=== PATIENT | male | born 1995 | race Caucasian/White ===

== ENCOUNTER 2021-10-26 20:38 | Emergency (ER) | payer OTHER, SELFPAY ==
[2021-10-26 20:47] VITALS: BP 129/80; PULSE 91; RESP 17; TEMP 36.8; O2SAT 96; BMI 25.1
[2021-10-26 21:06] VITALS: PULSE 64; RESP 22; O2SAT 96
[2021-10-26 21:22] LABS: Add Manual Diff / Slide Review NO; Basophils Absolute Auto 0 /uL (0-100); Basophils Percent Auto 0.5 % (0-2); Eosinophils Absolute Auto 100 /uL (0-450); Eosinophils Percent Auto 0.9 % (2-4); Hematocrit 41.3 % (41-53); Lymphocytes Absolute Auto 1700 /uL (1100-4500); Lymphocytes Percent Auto 23.7 % (25-40); Mean Corpuscular HGB Conc 33.9 % (30-36); Mean Corpuscular Hemoglobin 28.8 PG (26-34); Mean Corpuscular Volume 84.8 fL (80-100); Monocytes Absolute Auto 400 /uL (0-900); Monocytes Percent Auto 5.3 % (3-14); Neutrophils Absolute Auto 5100 /uL (1500-7000); Neutrophils Percent Auto 69.6 % (50-75); Platelet Count 222 X10^3/uL (150-400); Red Blood Cell Count 4.87 X10^6/uL (4.5-5.9); Red Cell Distribution Width 13.2 % (11.6-14.8); White Blood Cell Count 7.3 X10^3/uL (4.5-11.0)
[2021-10-26 21:27] LABS: Alanine Aminotransferase 33 IU/L (<50); Albumin 4.6 g/dL (3.5-5.0); Albumin Globulin Ratio 1.5 (1.0-2.8); Alkaline Phosphatase 42 U/L (38-126); Aspartate Aminotransferase 32 IU/L (17-59); BUN Creatinine Ratio 19.3 (6-22); Bilirubin Total 0.4 mg/dL (0.2-1.3); Blood Urea Nitrogen 16 mg/dL (9-20); Calcium 8.8 mg/dL (8.4-10.2); Carbon Dioxide 25 mmol/L (22-32); Chloride 106 mmol/L (98-107); Estimated Glomerular Filt Rate > 60 mL/min (>60); Globulin 3.1 g/dL (1.7-4.1); Glucose 95 mg/dL (70-100); HEMOLYSIS < 15 (0-50); Potassium 4.1 mmol/L (3.4-5.1); Sodium 137 mmol/L (137-145); Total Protein 7.7 g/dL (6.3-8.2)
[2021-10-26 21:30] VITALS: PULSE 60; RESP 20; O2SAT 96
--- NOTE | 2021-10-26 21:52 | DI.CT.S_ITS ---
PROCEDURE: CT ABDOMEN PELVIS W CON INDICATIONS: GI Bleed TECHNIQUE: After the administration of oral and IV contrast, axial sections were acquired from the lung bases to the pubic symphysis. Coronal and sagittal reformats were performed. For radiation dose reduction, the following was used: automated exposure control, adjustment of mA and/or kV according to patient size. COMPARISON: None. FINDINGS: Image quality: Excellent. Lung bases: Dependent atelectasis in posterior aspect of bilateral lung bases are seen.. Heart: No significant findings. ABDOMEN: Liver: Borderline hepatomegaly is seen. Well-circumscribed hypodensity involving inferior right hepatic lobe measures 4-5 mm in size is seen and is too small to characterize series 2, image 39. No other hepatic lesion is seen.. Gallbladder: Within normal limits. Biliary ducts: Unremarkable. Pancreas: Unremarkable. Spleen: Unremarkable. Adrenal Glands: Unremarkable. Kidneys and Ureters: No stones or hydronephrosis. No hydroureter. Stomach and Bowel: There is no evidence of bowel obstruction. No gastric wall thickening. Segmental small bowel wall thickening in left upper quadrant abdomen is seen with narrowing of the lumen. There is also suggestion wall thickening involving distal descending colon and sigmoid colon with mild pericolonic fat stranding and narrowing of the lumen. No abscess collection. Peritoneum: No abnormal intraperitoneal fluid. No free air. Ventral Wall: No hernia. Abdominal Nodes: No retroperitoneal or mesenteric adenopathy by size criteria. Vessels: Aorta and inferior vena cava are normal in size. PELVIS: Pelvic Organs: Unremarkable. Bladder: Unremarkable. Pelvic Nodes: No enlarged lymph nodes. Miscellaneous: No inguinal hernias are seen. Bones: No suspicious intraosseous lesion. No acute vertebral body compression fracture. Degenerative endplate changes at T10-11 through L2-3 levels are seen with dorsal disc osteophyte complex formation and mild central canal stenosis. IMPRESSION: 1. Segmental small bowel wall thickening in left upper quadrant abdomen and descending colon and sigmoid colon wall thickening concerning for infectious or inflammatory enterocolitis. No bowel obstruction. No abscess collection. No free fluid or free air. 2. Borderline hepatomegaly, suggestion of tiny cyst involving inferior right hepatic lobe. 3. Degenerative endplate changes at thoracolumbar junction as above. Dictated by: Gene Arrieta M.D. on 10/26/2021 at 23:18 Approved by: Gene Arrieta M.D. on 10/26/2021 at 23:22
[2021-10-26 22:00] VITALS: PULSE 61; RESP 21; O2SAT 97
[2021-10-26 22:30] VITALS: PULSE 60; RESP 18; O2SAT 98
[2021-10-26 22:31] LABS: Erythrocyte Sedimentation Rate 1 MM/HR (0-15)
[2021-10-26 22:40] LABS: C-Reactive Protein Quant < 0.5 mg/dL (<1.0)
[2021-10-26 23:00] VITALS: PULSE 59; RESP 19; O2SAT 96
--- NOTE | 2021-10-27 00:56 | ED.GIBLEED ---
HPI - GI Bleed General Chief complaint: GI Bleed Stated complaint: Lower ABD pain, Blood in stool Time Seen by Provider: 10/26/21 21:47 Source: patient Mode of arrival: Ambulatory History of Present Illness HPI Narrative: 25-year-old gentleman presents with bright red blood per rectum. He notes that he had an episode associated with some stool, blood on the outside of the stool, and then had an episode of just blood that did turn all of the toilet water bloody but was not actually a clot. He describes no history of hemorrhoids has not been constipated. He is having some mild lower abdominal cramping. His mother had a history of Crohn's disease and last year of colon cancer. Kenn had a colonoscopy as a teen and did not have any abnormalities. He has not had rectal bleeding previously he does not describe any weight loss, fevers, chest pain palpitations, dyspnea, orthopnea, Related Data Previous Rx's Medication Instructions Recorded prednisone 20 mg tablet 40 mg PO DAILY #35 tabs 10/27/21 Allergies Allergy/AdvReac Type Severity Reaction Status Date / Time Penicillins Allergy Anaphylaxis Verified 10/26/21 20:52 Review of Systems Review of Systems Narrative: Remainder of complete review of systems is otherwise unremarkable except for that included in the HPI. Patient History Social History Smoking Status: Current every day smoker Smoking Status: Current every day smoker tobacco type: vaping alcohol intake frequency: 0-2 drinks per day Substance Use Type: does not use Exam Initial Vital Signs Initial Vital Signs: Vital Signs Temperature 98.3 F 10/26/21 20:47 Pulse Rate 91 H 10/26/21 20:47 Respiratory Rate 17 10/26/21 20:47 Blood Pressure 129/80 10/26/21 20:47 Pulse Oximetry 96 10/26/21 20:47 Oxygen Delivery Method 10/26/21 20:47 Course Orders Ordered: ED Orders 10/26/21 20:53 EKG-12 Lead Stat 10/26/21 21:03 CRP [C-Reactive Protein Quant] Stat Complete Blood Count AUTO DIFF Stat Comprehensive Metabolic Panel Stat Erythrocyte Sedimentation Rate Stat 10/26/21 21:52 CT abdomen pelvis w con Stat Discontinued Medications Prednisone (Prednisone 20 Mg Tablet) 40 mg PO NOW ONE Stop: 10/27/21 01:28 Vital Signs Vital signs: Vital Signs - 8 hr 10/26/21 20:47 Temperature 98.3 F Pulse Rate 91 H Respiratory Rate 17 Blood Pressure 129/80 Pulse Oximetry 96 Oxygen Delivery Method Room Air MDM - GI Bleed Lab Data Result diagrams: 10/26/21 21:03 10/26/21 21:03 Labs: Lab Results 10/26/21 10/26/21 10/26/21 Range/Units 21:03 21:03 21:03 WBC 7.3 (4.5-11.0) X10^3/uL RBC 4.87 (4.5-5.9) X10^6/uL Hgb 14.0 (13.5-17.5) g/dL Hct 41.3 (41-53) % MCV 84.8 (80-100) fL MCH 28.8 (26-34) PG MCHC 33.9 (30-36) % RDW 13.2 (11.6-14.8) % Plt Count 222 (150-400) X10^3/uL Neut % (Auto) 69.6 (50-75) % Lymph % (Auto) 23.7 L (25-40) % Meriwether % (Auto) 5.3 (3-14) % Eos % (Auto) 0.9 L (2-4) % Baso % (Auto) 0.5 (0-2) % Neut # (Auto) 5100 (8564-4169) /uL Lymph # (Auto) 1700 (7157-9383) /uL Meriwether # (Auto) 400 (0-900) /uL Eos # (Auto) 100 (0-450) /uL Baso # (Auto) 0 (0-100) /uL ESR 1 (0-15) MM/HR Sodium 137 (137-145) mmol/L Potassium 4.1 (3.4-5.1) mmol/L Chloride 106 (98-107) mmol/L Carbon Dioxide 25 (22-32) mmol/L BUN 16 (9-20) mg/dL Creatinine 0.83 (0.66-1.25) mg/dL Estimated GFR > 60 (>60) mL/min BUN/Creatinine Ratio 19.3 (6-22) Glucose 95 (70-100) mg/dL Calcium 8.8 (8.4-10.2) mg/dL Total Bilirubin 0.4 (0.2-1.3) mg/dL AST 32 (17-59) IU/L ALT 33 (<50) IU/L Alkaline Phosphatase 42 (38-126) U/L C-Reactive Protein (<1.0) mg/dL Total Protein 7.7 (6.3-8.2) g/dL Albumin 4.6 (3.5-5.0) g/dL Globulin 3.1 (1.7-4.1) g/dL Albumin/Globulin Ratio 1.5 (1.0-2.8) 10/26/21 Range/Units 21:03 WBC (4.5-11.0) X10^3/uL RBC (4.5-5.9) X10^6/uL Hgb (13.5-17.5) g/dL Hct (41-53) % MCV (80-100) fL MCH (26-34) PG MCHC (30-36) % RDW (11.6-14.8) % Plt Count (150-400) X10^3/uL Neut % (Auto) (50-75) % Lymph % (Auto) (25-40) % Meriwether % (Auto) (3-14) % Eos % (Auto) (2-4) % Baso % (Auto) (0-2) % Neut # (Auto) (3099-5937) /uL Lymph # (Auto) (7019-8497) /uL Meriwether # (Auto) (0-900) /uL Eos # (Auto) (0-450) /uL Baso # (Auto) (0-100) /uL ESR (0-15) MM/HR Sodium (137-145) mmol/L Potassium (3.4-5.1) mmol/L Chloride (98-107) mmol/L Carbon Dioxide (22-32) mmol/L BUN (9-20) mg/dL Creatinine (0.66-1.25) mg/dL Estimated GFR (>60) mL/min BUN/Creatinine Ratio (6-22) Glucose (70-100) mg/dL Calcium (8.4-10.2) mg/dL Total Bilirubin (0.2-1.3) mg/dL AST (17-59) IU/L ALT (<50) IU/L Alkaline Phosphatase (38-126) U/L C-Reactive Protein < 0.5 (<1.0) mg/dL Total Protein (6.3-8.2) g/dL Albumin (3.5-5.0) g/dL Globulin (1.7-4.1) g/dL Albumin/Globulin Ratio (1.0-2.8) Urine Dip Bedside Urine Glucose Negative Bedside Urine Bilirubin - Negative Bedside Urine Ketone - Negative Urine Specific Dougherty 1.015 Bedside Urine Occult Blood - Negative Bedside Urine pH 6.5 Bedside Urine Protein - Negative Bedside Urine Urobilinogen - Negative Bedside Urine Nitrite - Negative Bedside Urine Leukocytes - Negative Esterase Imaging Data CT scan - abdomen/pelvis: Radiologist's Impression: FINDINGS:? Image quality:? Excellent.? ? Lung bases:? Dependent atelectasis in posterior aspect of bilateral lung bases are seen.. ?? Heart:? No significant findings. ? ? ABDOMEN: Liver:? Borderline hepatomegaly is seen.? Well-circumscribed hypodensity involving inferior right hepatic lobe measures 4-5 mm in size is seen and is too small to characterize series 2, image 39.? No other hepatic lesion is seen..? ? Gallbladder:? Within normal limits. Biliary ducts:? Unremarkable.? ? Pancreas:? Unremarkable.? ? Spleen:? Unremarkable.? ? Adrenal Glands:? Unremarkable.? ? Kidneys and Ureters:? No stones or hydronephrosis.? No hydroureter. ? Stomach and Bowel:? There is no evidence of bowel obstruction.? No gastric wall thickening.? Segmental small bowel wall thickening in left upper quadrant abdomen is seen with narrowing of the lumen.? There is also suggestion wall thickening involving distal descending colon and sigmoid colon with mild pericolonic fat stranding and narrowing of the lumen.? No abscess collection. Peritoneum:? No abnormal intraperitoneal fluid.? No free air.? ? Ventral Wall: ? No hernia.? Abdominal Nodes:? No retroperitoneal or mesenteric adenopathy by size criteria.? Vessels:? Aorta and inferior vena cava are normal in size.? ? PELVIS: Pelvic Organs:? Unremarkable.? ? Bladder:? Unremarkable.? ? Pelvic Nodes: No enlarged lymph nodes.? Miscellaneous: No inguinal hernias are seen. ? ? ? Bones:? No suspicious intraosseous lesion.? No acute vertebral body compression fracture. ?Degenerative endplate changes at T10-11 through L2-3 levels are seen with dorsal disc osteophyte complex formation and mild central canal stenosis. ? ? IMPRESSION:? ? 1. Segmental small bowel wall thickening in left upper quadrant abdomen and descending colon and sigmoid colon wall thickening concerning for infectious or inflammatory enterocolitis.? No bowel obstruction.? No abscess collection.? No free fluid or free air. 2. Borderline hepatomegaly, suggestion of tiny cyst involving inferior right hepatic lobe. 3. Degenerative endplate changes at thoracolumbar junction as above.? ? ? Dictated by: Gene Arrieta M.D. on 10/26/2021 at 23:18 ? ? [facility] Narrative Medical decision making narrative: 25-year-old gentleman presents with abdominal pain and bright red blood per rectum. Strong family history for inflammatory bowel disease. He is not acutely toxic showing no signs of acute abdomen, significant leukocytosis or anemia. CT scan suggests bowel wall thickening for small bowel as well as descending and sigmoid colon. No abscess. I was able to contact Gastroenterology this evening however a review from [employer] suggested starting prednisone at 40 mg daily and tapering from there. Will providers prescription for such. Findings and concerns are reviewed with the patient who understands. I referred him to Dr. Esposito, gastroenterology at [facility] and have sent a message to Dr. Esposito as well. Instructions on complications worsening symptoms and when to to return to the emergency department reviewed with patient. Questions are answered he is safe for discharge home For patients with mild, diffuse Crohn colitis or left-sided colonic disease, we suggest initial therapy with oral?prednisonehttps://www.[employer]/contents/zyhpirkaij-uirn-fvxaoinlrcd?search=inflammatory+bowel+diease+initial+treatment&kkwhaBpb=5332&source=see_link?40 mg per day for one week. At that point, a gradual tapering by 5 to 10 mg per week should be started with the goal of discontinuing the prednisone over one to two months [1https://www.[employer]/contents/qulhxlqc-jl-vbm-mcndosl-talsmfyjfc-nu-puxd-wia-nvkv-uaxct-ieoxxme-ei-adults/abstract/1]. Discharge Plan Departure Patient Disposition: Home Clinical Impression: Inflammatory bowel disease Instructions: Inflammatory Bowel Disease Activity Restrictions/Additional Instructions: Thank you for coming in today I am concerned that you are developing inflammatory bowel disease. At this time, your blood work is reassuring however your CT scan is highly suggestive of inflammatory bowel disease. I have given you copies of blood work as well as the CT report to share with your primary care doctor. You are also going to need follow-up with a medical interpreter. I have shared your information with Dr. Esposito at [facility] and his office may be contacting you. Please call the [facility] at [phone], ask for the Gastroenterology Clinic, Dr. Esposito and explain that you need an emergency department follow-up appointment for probable inflammatory bowel disease For immediate treatment, I am going to prescribe 7 days of prednisone at 40 mg a day (2 pills), 7 days at 30 mg a day (1.5 pills), 7 days at 20 mg a day, 7 days at 10 mg a day (.5 pills) , 8 days at 10 mg (.5 pills) every other day then stop. If you find that you are getting worse or develop any new symptoms, please feel free to return to the emergency department for further evaluation. Prescriptions: New prednisone 20 mg tablet 40 mg PO DAILY Qty: 35 0RF
[2021-10-27 01:36] VITALS: BP 122/63; PULSE 62; O2SAT 98
[2021-10-27] MEDS: predniSONE 20 MG TABLET 40 MG PO (01:36)
[2021-10-27 01:37] VITALS: BP 112/62; PULSE 64; O2SAT 97
== END 2021-10-27 01:46 | disposition home or self-care (01) ==
PROVIDERS: Emergency Provider Emergency Medicine
DX: K63.89 Other specified diseases of intestine (principal); R10.30 Lower abdominal pain, unspecified
CPT/HCPCS: 36415; 74177; 80053; 81003; 85025; 85651; 86140; 93005; 93010; 99284; Q9967